=== PATIENT | female | born 1990 | race Caucasian/White ===

== ENCOUNTER 2018-10-22 21:20 | Emergency (ER) | payer BC, OTHER ==
--- OUTSIDE RECORDS SUMMARY | 2018-10-22 21:22 | XMS REPORT ---
:1990 Author Organization [facility] Address [address] [place] [address] [address]. [address] [place] [address] Care Team Providers Name Role Phone Unavailable Unavailable Unavailable Payers Payer Name Policy Type Policy Number Effective Date Expiration Date Problems This patient has no known problems. Allergies, Adverse Reactions, Alerts This patient has no known allergies or adverse reactions. Medications This patient has no known medications. Results Test Description Test Time Test Comments Text Results Atomic Results Result Comments - XR HYSTROSALPNGOGRAM 2018-05-07 16:01:00 Patient Name: ANAMARIA IZQUIERDO Unit No: [id number] EXAMS: CPT CODE: [id number] XR HYSTROSALPNGOGRAM [id number] HYSTEROSALPINGOGRAM,05/07/2018 Radiation dose: 6.88 mGy Fluoro time: 22 seconds CLINICAL HISTORY: Infertility testing COMPARISON: None FINDINGS: Hysterosalpingogram was attempted by Dr. Hernandez. Uterine cavity was not able to be cannulated and the examination was terminated by Dr. Hernandez. CONCLUSION: Unsuccessful hysterosalpingogram. at 1601 Reported and signed by: Jackson Smith MD CC: Diana Hernandez Technologist: Emerald Mccurdy RT; Ewelina Boyd Trnscrbd D/ (1601) [id number] Orig Print D/T: S: 05/07/2018 (1604) [facility] NAME: ANAMARIA IZQUIERDO Radiology Department PHYS: NICHOLE.Vania - Diana Hernandez MD [address] : 1990 AGE: 27 SEX: F [place], [place] [address] LOC: F.RAD PHONE #: [phone] EXAM DATE: 05/07/2018 STATUS: REG CLI FAX #: [phone] RAD NO: Page 1 Signed Report
[2018-10-22 23:34] LABS: Absolute Lymphocytes (CBC) 3.2 K/uL (0.7-4.9); Basophils % 0.3 % (0-1.3); Hematocrit 39.4 % (36.0-45.0); MPV 8.3 fL (7.6-11.3); RBC Red Blood Cell Count 4.35 M/uL (3.86-4.86)
[2018-10-22 23:54] LABS: ALT/SGPT 19 U/L (12-78); AST/SGOT 7 U/L (15-37); Alkaline Phosphatase 66 U/L (45-117); BUN Blood Urea Nitrogen 12 mg/dL (7-18); Bicarbonate 28 mmol/L (21-32); Bilirubin Direct 0.1 mg/dL (0-0.2); Bilirubin Total 0.3 mg/dL (0.2-1.0); Glucose Level 93 mg/dL (74-106); Lipase 152 U/L (73-393); Potassium 3.6 mmol/L (3.5-5.1); Protein, Total 7.4 g/dL (6.4-8.2); Sodium Level 142 mmol/L (136-145)
--- NOTE | 2018-10-23 00:03 | EDPHYS ---
Physician Documentation [facility] Name: Eva Jacques Age: 28 yrs Sex: Female : 1990 Arrival Date: 10/22/2018 Time: 21:24 Bed 23 Private MD: ED Physician Michael Howard HPI: 10/22 23:25 This 28 yrs old Female presents to ER via Ambulatory with complaints of cp Rectal Bleeding. 23:25 The patient presents to the emergency department with bleeding from the rectum/anus, cp that is mild. Onset: The symptoms/episode began/occurred today. Associate signs and symptoms: Pertinent negatives: abdominal pain, constipation, diarrhea, fever, vomiting. Patient reports having lower abdominal cramping pain today and noticing blood with firm bowel movement today. 23:25 Patient reports having intrauterine procedure this past Monday. 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 - Social history:: Smoking status: Patient/guardian denies using tobacco. - Ebola Screening: : No symptoms or risks identified at this time. ROS: 23:30 Constitutional: Negative for body aches, chills, fever, poor PO intake. cp 23:30 Eyes: Negative for injury, pain, redness, and discharge. cp 23:30 Cardiovascular: Negative for chest pain, palpitations. 23:30 Respiratory: Negative for cough, shortness of breath, wheezing. 23:30 Abdomen/GI: Positive for blood in stool, Negative for vomiting, diarrhea, constipation, anorexia. 23:30 Back: Negative for pain at rest, pain with movement, radiated pain. 23:30 : Negative for urinary symptoms, vaginal bleeding. 23:30 Neuro: Negative for altered mental status, headache, weakness. 23:30 All other systems are negative. Exam: 23:35 Constitutional: The patient appears in no acute distress, alert, awake, non-toxic, well cp developed, well nourished. 23:35 Head/Face: Normocephalic, atraumatic. cp 23:35 Eyes: Periorbital structures: appear normal, Conjunctiva: normal, no exudate, no injection, Sclera: no appreciated abnormality, Lids and lashes: appear normal, bilaterally. 23:35 ENT: External ear(s): are unremarkable, Nose: is normal, Mouth: is normal, Posterior pharynx: is normal, airway is patent, no erythema, no exudate. 23:35 Chest/axilla: Inspection: normal, Palpation: is normal, no crepitus, no tenderness. 23:35 Cardiovascular: Rate: normal, Rhythm: regular. 23:35 Respiratory: the patient does not display signs of respiratory distress, Respirations: normal, no use of accessory muscles, no retractions, no splinting, no tachypnea, labored breathing, is not present, Breath sounds: are clear throughout, no decreased breath sounds, no stridor, no wheezing. 23:35 Abdomen/GI: Inspection: abdomen appears normal, Bowel sounds: active, all quadrants, Palpation: soft, in all quadrants, nontender, in all quadrants, rebound tenderness, is not appreciated, voluntary guarding, is not appreciated, involuntary guarding, is not appreciated, Rectal exam: Stool: brown, guaiac positive. Vital Signs: 21:31 BP 119 / 76; Pulse 82; Resp 16; Temp 97.7; Pulse Ox 98% on R/A; Weight 56.7 kg (R); ak1 Height 5 ft. 4 in. (162.56 cm) (R); Pain 2/10; 22:20 BP 116 / 70; Pulse 72; Resp 16 S; Pulse Ox 100% on R/A; ca1 23:20 BP 109 / 74; Pulse 76; Resp 16 S; Pulse Ox 100% on R/A; ca1 10/23 00:30 BP 104 / 63; Pulse 66; Resp 15 S; Temp 97.9(O); Pulse Ox 99% on R/A; ca1 10/22 21:31 Body Mass Index 21.46 (56.70 kg, 162.56 cm) ak1 MDM: 10/22 22:11 Patient medically screened. cp 23:30 Differential diagnosis: hemorrhoids, fissure, colitis. 10/23 00:01 Data reviewed: vital signs, nurses notes, lab test result(s), and as a result, I will cp discharge patient. 00:01 Refusal of service: The patient/guardian displays adequate decision making capability cp and despite a detailed discussion of alternatives, benefits, risks, and consequences refuses: CT Scan. Special discussion: Based on the patient's Hx, exam, and Dx evaluation, there is no indication for emergent surgery or inpatient Tx. It is understood by the patient/guardian that if the Sx's persist or worsen they need to return immediately for re-evaluation. 10/22 23:17 Order name: Basic Metabolic Panel; Complete Time: 23:56 10/22 23:56 Interpretation: Normal except: CL 110. 10/22 23:17 Order name: CBC with Diff; Complete Time: 23:56 10/22 23:56 Interpretation: Reviewed. 10/22 23:17 Order name: Creatinine for Radiology; Complete Time: 23:56 10/22 23:17 Order name: Hepatic Function; Complete Time: 23:56 10/22 23:17 Order name: Lipase; Complete Time: 23:56 10/22 23:17 Order name: PT-INR; Complete Time: 23:56 10/22 23:17 Order name: IV Saline Lock; Complete Time: 00:29 10/22 23:17 Order name: Labs collected and sent; Complete Time: 00:29 cp Administered Medications: No medications were administered Disposition: 10/23/18 00:01 Discharged to Home. Impression: Gastrointestinal hemorrhage, unspecified. - Condition is Stable. - Discharge Instructions: Rectal Bleeding. - Medication Reconciliation Form, Thank You Letter, Antibiotic Education, Prescription Opioid Use form. - Follow up: Jose Ramon Pace MD; When: 1 - 2 days; Reason: Recheck today's complaints. - Problem is new. - Symptoms have improved. Addendum: 10/24/2018 06:09 Co-signature as Attending Physician, Michael Howard MD I agree with the assessment and t w4 plan of care. Signatures: Dispatcher [employer] Sunshine Ely, RN RN ak1 Marcello Gamez PA PA cp Wadley, Terrence, MD MD tw4 Brenda Sultana RN RN ca1 Corrections: (The following items were deleted from the chart) 10/23 00:42 00:01 10/23/2018 00:01 Discharged to Home. Impression: Gastrointestinal hemorrhage, ca1 unspecified. Condition is Stable. Forms are Medication Reconciliation Form, Thank You Letter, Antibiotic Education, Prescription Opioid Use. Follow up: Jose Ramon Pace; When: 1 - 2 days; Reason: Recheck today's complaints. Problem is new. Symptoms have improved. cp
--- NOTE | 2018-10-23 00:03 | ER ---
Nurse's Notes [facility] Name: Eva Jacques Age: 28 yrs Sex: Female : 1990 Arrival Date: 10/22/2018 Time: 21:24 Bed 23 Private MD: Diagnosis: Gastrointestinal hemorrhage, unspecified Presentation: 10/22 21:29 Presenting complaint: Patient states: bright red blood from rectum started at 1730 ak1 today with BM. pt denies constipation. pt had IUI Monday for the 4th time. pt c/o abd cramps today. pt stated blood is when she wipes. Transition of care: patient was not received from another setting of care. Onset of symptoms was October 22, 2018. Risk Assessment: Do you want to hurt yourself or someone else? Patient reports no desire to harm self or others. Initial Sepsis Screen: Does the patient meet any 2 criteria? No. Patient's initial sepsis screen is negative. Does the patient have a suspected source of infection? No. Patient's initial sepsis screen is negative. Care prior to arrival: None. 21:29 Method Of Arrival: Ambulatory ak1 21:29 Acuity: ADDY 3 ak1 Triage Assessment: 21:31 General: Appears in no apparent distress. Behavior is cooperative, anxious. Pain: ak1 Complains of pain in pelvis. 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 - Social history:: Smoking status: Patient/guardian denies using tobacco. - Ebola Screening: : No symptoms or risks identified at this time. Screenin:32 Abuse screen: Denies threats or abuse. Denies injuries from another. Nutritional ak1 screening: No deficits noted. Tuberculosis screening: No symptoms or risk factors identified. Fall Risk None identified. Assessment: 22:20 General: Appears in no apparent distress. comfortable, Behavior is calm, cooperative, ca1 appropriate for age. Pain: Denies pain. Neuro: Level of Consciousness is awake, alert, obeys commands, Oriented to person, place, time, situation, Appropriate for age. Cardiovascular: Heart tones S1 S2 present Capillary refill < 3 seconds Patient's skin is warm and dry. Pulses. Respiratory: Airway is patent Respiratory effort is even, unlabored, Respiratory pattern is regular, symmetrical, Breath sounds are clear bilaterally. GI: Abdomen is flat, non-distended, Bowel sounds present X 4 quads. Abd is soft and non tender X 4 quads. Reports rectal bleeding, since 1700H today. : No deficits noted. No signs and/or symptoms were reported regarding the genitourinary system. EENT: No deficits noted. No signs and/or symptoms were reported regarding the EENT system. Derm: Skin is intact, is healthy with good turgor, Skin is pink, warm \T\ dry. Musculoskeletal: Circulation, motion, and sensation intact. Capillary refill < 3 seconds, Range of motion: intact in all extremities. 23:20 Reassessment: Patient appears in no apparent distress at this time. No changes from ca1 previously documented assessment. Patient and/or family updated on plan of care and expected duration. Pain level reassessed. Patient is alert, oriented x 3, equal unlabored respirations, skin warm/dry/pink. 10/23 00:39 Reassessment: Patient appears in no apparent distress at this time. Patient is alert, ca1 oriented x 3, equal unlabored respirations, skin warm/dry/pink. Vital Signs: 10/22 21:31 BP 119 / 76; Pulse 82; Resp 16; Temp 97.7; Pulse Ox 98% on R/A; Weight 56.7 kg (R); ak1 Height 5 ft. 4 in. (162.56 cm) (R); Pain 2/10; 22:20 BP 116 / 70; Pulse 72; Resp 16 S; Pulse Ox 100% on R/A; ca1 23:20 BP 109 / 74; Pulse 76; Resp 16 S; Pulse Ox 100% on R/A; ca1 10/23 00:30 BP 104 / 63; Pulse 66; Resp 15 S; Temp 97.9(O); Pulse Ox 99% on R/A; ca1 10/22 21:31 Body Mass Index 21.46 (56.70 kg, 162.56 cm) ak1 ED Course: 10/22 21:24 Patient arrived in ED. es 21:31 Triage completed. ak1 21:31 Arm band placed on Patient placed in waiting room, Patient notified of wait time. ak1 21:32 Patient has correct armband on for positive identification. ak1 22:05 Marcello Gamez PA is PHCP. cp 22:05 Michael Howard MD is Attending Physician. cp 22:06 Brenda Sultana, TRAVIS is Primary Nurse. ca1 22:20 Placed in gown. Bed in low position. Call light in reach. Side rails up X 1. Pulse ox ca1 on. NIBP on. Warm blanket given. 23:20 No provider procedures requiring assistance completed. Inserted saline lock: 22 gauge ca1 in right antecubital area, using aseptic technique. Blood collected. 10/23 00:00 Jose Ramon Pace MD is Referral Physician. cp 00:40 IV discontinued, intact, bleeding controlled, No redness/swelling at site. Pressure ca1 dressing applied. Administered Medications: No medications were administered Outcome: 00:01 Discharge ordered by MD. cp 00:40 Discharged to home ambulatory, with significant other. ca1 00:40 Condition: stable 00:40 Discharge instructions given to patient, Instructed on discharge instructions, follow up and referral plans. Demonstrated understanding of instructions, follow-up care. 00:42 Patient left the ED. ca1 Signatures: Malissa Barboza Amber, RN RN ak1 Marcello Gamez PA PA cp Acob, Cheryl, RN RN ca1
== END 2018-10-23 00:42 | disposition home or self-care (01) ==
LOC: ER 21:20
DX: K92.2 Gastrointestinal hemorrhage, unspecified (principal)
CPT/HCPCS: 36415; 80048; 80076; 83690; 85025; 85610; 99284